=== PATIENT | female | born 1990 | race Asian ===

== ENCOUNTER 2020-04-21 16:39 | Emergency (ER) | payer OTHER, SELFPAY ==
[2020-04-20 13:32] VITALS: BMI 35.8
[2020-04-21] VITALS (8 sets, daily range): BP systolic 107–141; BP diastolic 65–87; PULSE 68–99; RESP 16–25; TEMP 37; O2SAT 96–99; BMI 35.9
--- NOTE | 2020-04-21 16:46 | NURSING ---
NO OLD EKGS
--- NOTE | 2020-04-21 17:02 | EKG12_ITS ---
Test Reason : Blood Pressure : / mmHG Vent. Rate : 074 BPM Atrial Rate : 074 BPM P-R Int : 144 ms QRS Dur : 082 ms QT Int : 406 ms P-R-T Axes : 041 014 016 degrees QTc Int : 450 ms Normal sinus rhythm Normal ECG Confirmed by TIO SAWYER, BOY ([id number]), newspaper copy editor LULA LINDSAY ([id number]) on 04/26/2020 11:07:28 AM Referred By: DIONTE Confirmed By:BOY KINSEY MD
--- NOTE | 2020-04-21 17:06 | ED.VISSUMM ---
- ER Visit Summary Date of Service: 04/21/20 Chief Complaint: Chest pain History of Present Illness: The patient is a 29 F who presents with chest pain that occurred 2 days ago. Patient states she has had similar pains in the past that come and go. Patient describes as a tingling in her midsternal area. Patient states the pain has subsided. Patient states she was laying down when it began. Patient states nothing makes it better or worse. Patient admits to some nausea but denies any vomiting. Patient denies any shortness of breath or diaphoresis. Patient does admit to a slight cough. Patient also states she had some lightheadedness a couple days ago. Patient denies any fevers. Patient denies any palpitations. Patient states she does have a history of gastroesophageal reflux. Physical Examination: Vital signs are stable. Patient is afebrile. Patient is in no acute distress. Oral mucosa is pink and moist. Neck is supple. Trachea is midline. There is no JVD noted. Heart was regular rate and rhythm. Lungs are clear and equal bilaterally. Abdomen is soft. Bowel sounds are normal. There is no tenderness. There is no rebound or guarding noted. Skin is warm dry. Cranial nerves II through XII are intact. There are no focal motor or sensory deficits noted. Extremities are intact. There is no calf tenderness or edema. Test Results: EKG showed normal sinus rhythm with a rate of 74. EKG from the patient's primary care physician's office was reviewed. There is concern for pericarditis on that EKG however on the EKG that was repeated here there are no changes consistent with pericarditis. Chest x-ray was obtained. There is no acute cardiopulmonary process. CBC was normal. Basic metabolic profile was essentially within normal limits. PT with INR and PTT were normal. Troponin was normal. Urinalysis shows leukocyte esterase of 100. Ketones were 5. There is 0-5 white blood cells and 0-5 squamous epithelial cells. CRP and sed rate were slightly elevated at 18.5 and 29 respectively. Emergency Department Course and Treatment: Patient is feeling better on reevaluation. Findings were discussed with the patient. Patient has a HEART score of 3. Patient was instructed to follow-up with her primary care physician in 5 to 7 days. Patient was advised she has low risk for acute cardiac event. Patient understood and was agreeable with the plan. All questions were answered. Disposition: Discharge home Impression: Chest pain of uncertain etiology This note was generated with [employer] dictation software. It may contain incorrect words, spelling, and punctuation that were not noted in review of the chart prior to signing ED Disposition - Plan for ED Patient: Disposition: Home or Assisted Living Diagnosis: Chest pain of uncertain etiology Instructions: ED Chest Pain Atypical Unkn Cause Referrals: Malorie More MD [Primary Care Provider] - 5-7 Days
[2020-04-21] MEDS: Aspirin 81 MG TAB.CHEW 324 MG PO (17:15)
[2020-04-21 17:17] LABS: Absolute Lymphocyte Count 3.69 X10^3/uL (0.83-4.51); Absolute Neutrophil Count 4.1 X10^3/uL (2.0-7.7); Basophil# 0.03 X10^3/uL; Basophil% 0.4 % (0-1); Eosinophils% 1.2 % (0-5); Hematocrit 42.5 % (37-47); Hemoglobin 13.8 g/dL (12.0-15.0); Lymphocyte # 3.69 X10^3/ul (4.0); Lymphocyte % 44.7 % (19-41); Mean Corp Hgb Conc 32.5 g/dL (32-36); Mean Corpuscular Hgb 27.7 pg (27.0-32.0); Mean Corpuscular Volume 85.3 fL (81-99); Mean Platelet Vol. 9.7 fl (6.2-12.0); Monocyte# 0.31 X10^3/uL; Monocyte% 3.8 % (0-10); NRBC Flagged by Analyzer 0 % (0-5); Neutrophil # 4.11 X10^3/uL (2.7-7.7); Neutrophil % 49.7 % (47-70); Platelet Count 350 K/mm3 (150-450); RBC Distribution Width CV 13.5 % (11.6-14.6); Red Blood Count 4.98 M/mm3 (4.2-5.4); White Blood Count 8.3 K/mm3 (4.4-11.0)
--- NOTE | 2020-04-21 17:30 | RAD_ITS ---
STUDY: X-RAY CHEST REASON FOR EXAM: Female, 29 years old. PT WAS HAVING CHEST PAIN 2 DAYS AGO AND WENT TO PCP, SENT TO [facility] FOR ABNORMAL EKG. TECHNIQUE: 1 view COMPARISON: None. FINDINGS: Shallow inspiration without infiltrates, consolidation or pleural effusion. There is no demonstrated pleural abnormality. Normal size heart. Normal mediastinum and jesusita. Normal visualized pulmonary arteries. Normal visualized aortic arch and descending thoracic aorta. Normal visualized thoracic spine. Normal visualized ribs, clavicles, and shoulders. There is no demonstrated abnormality of the visualized soft tissue structures of the upper abdomen. RAD/Chest 1 View (Portable) IMPRESSION: Normal x-ray examination of the chest in shallow inspiration Electronically Signed: Gillian Winters MD at 17:43 EDT , Service support ,
[2020-04-21 17:33] LABS: Prothrombin Time (Protime)PT. 12.3 SECONDS (11.7-14.9)
[2020-04-21 17:34] LABS: Partial Thromboplast Time 28.7 Seconds (24.1-36.2)
[2020-04-21 17:52] LABS: Anion Gap 6 (5-15); BUN 13 mg/dL (7-18); BUN/Creat Ratio 18.3 RATIO (10-20); Calcium,Total 8.7 mg/dL (8.5-10.1); Chloride 101 mmol/L (98-107); Creatinine, Serum 0.71 mg/dL (0.55-1.02); EST Glomerular Filtration Rate 104 mL/min (>60); Erythrocyte Sedimentation Rate 29 mm/hr (0-20); Est Glom Filt Rate - Afr Amer 126 mL/min (>60); Estimated Creatinine Clearance 102.78 ml/min; Glucose 172 mg/dL (74-106); Potassium 3.5 mmol/L (3.5-5.1); Sodium Level 136 mmol/L (136-145)
[2020-04-21 19:11] LABS: Red Blood Cells-Urine 0 SEEN /hpf (0-5)
[2020-04-21 19:22] LABS: Color, Urine Yellow (Yellow); Glucose, Dipstick Normal (Normal); Ketone-Dipstick 5 mg/dl (Negative); Leukocyte Esterase-Dipstick 100 /ul (Negative); Nitrite-Dipstick Negative (Negative); Occult Blood-Urine Negative /ul (Negative); Protein-Dipstick 15 mg/dl (Negative); Specific Gravity, Urine 1.025 (1.002-1.030); Urine Bilirubin Dipstick Negative (Negative); Urine Clarity Clear (Clear); Urine Urobilinogen 1 mg/dl (Normal)
[2020-04-21 20:01] LABS: Bacteria 1+ /hpf (None Seen); Mucous, Urine 3+ /hpf (<or=2+); Squamous Epithelial Cells - UA 5-10 SEEN /hpf (5-10); Transitional Epithelial - Ur 5-10 SEEN /hpf (0-5); White Blood Cells 5-10 SEEN /hpf (0-5)
== END 2020-04-21 20:34 | disposition home or self-care (01) ==
PROVIDERS: Emergency Provider Emergency Medicine; PCP Internal Medicine
DX: R07.9 Chest pain, unspecified (principal); F17.200 Nicotine dependence, unspecified, uncomplicated; E11.9 Type 2 diabetes mellitus without complications; Z79.84 Long term (current) use of oral hypoglycemic drugs
CPT/HCPCS: 71045; 80048; 81001; 84484; 85025; 85610; 85652; 85730; 86140; 93005; 99284; A4216

== ENCOUNTER → 2020-04-30 09:18 | Outpatient (CLI) | payer OTHER, SELFPAY ==
[2020-04-21 16:40] VITALS: BMI 35.9
--- NOTE | 2020-04-30 09:24 | US_ITS ---
STUDY: ABDOMINAL ULTRASOUND - RIGHT UPPER QUADRANT REASON FOR VISIT: Female, 29 years old RUQ PAIN, NAUSEA X 2 MONTHS TECHNIQUE: Ultrasound evaluation of the right upper quadrant was performed with real-time and static madison-scale imaging. TECHNICAL QUALITY: Limited. Examination limited due to obesity. COMPARISON: None. FINDINGS: Liver: The liver measures 16.1 cm. There is increased echogenicity consistent with fatty infiltration. The bile ducts are within normal limits. There is hepatic color flow. The direction of portal flow is hepatopetal. There is no demonstrated mass lesion. Gallbladder: Normal distended gallbladder. The gallbladder wall measures 2 mm. There is a negative sonographic Hannon''s sign. There is no pericholecystic fluid. There are no gallstones. Common Bile Duct (C.B.D.): The common bile duct measures 5 mm. Pancreas: Normal size of the head, body and tail of the pancreas. There is increased echogenicity of the pancreas. There is no demonstrated pancreatic mass or cyst. Right Kidney: Normal size of the right kidney. The right kidney measures 11.7 x 4.9 x 4.9 cm. Normal renal cortex. The right cortex measures 1.2 cm. There is no demonstrated renal mass or cyst. There is no right hydronephrosis. US/Gallbladder IMPRESSION: Diffuse fatty infiltration of liver, no discrete lesion Nonspecific echogenic pancreas Electronically Signed: Joesph Snow MD at 12:04 EDT , Service support ,
== END ==
PROVIDERS: PCP Internal Medicine; Referring Provider Nurse Practitioner; Visit Provider Nurse Practitioner
DX: R10.11 Right upper quadrant pain (principal)
CPT/HCPCS: 76705

== ENCOUNTER 2020-07-07 16:19 | Outpatient (RCR) | payer OTHER, SELFPAY ==
[2020-04-21 16:40] VITALS: BMI 35.9
== END 2020-07-07 23:59 ==
LOC: DC 16:19
PROVIDERS: PCP Internal Medicine; Visit Provider Nurse Practitioner
DX: Z71.3 Dietary counseling and surveillance (principal); E11.9 Type 2 diabetes mellitus without complications
CPT/HCPCS: 97802

== ENCOUNTER → 2021-01-26 12:01 | Outpatient (CLI) | payer OTHER, SELFPAY ==
[2020-04-21 16:40] VITALS: BMI 35.9
[2021-01-26 15:50] LABS: ALB/GLOB Ratio 0.7 RATIO (0.9-2.4); AST(SGOT) 35 U/L (15-37); Alanine Aminotransfer ALT/SGPT 90 U/L (13-56); Albumin, Serum 3.6 g/dL (3.2-5.0); Alkaline Phosphatase 87 U/L (45-117); Anion Gap 7 (5-15); BUN 11 mg/dL (7-18); Calcium,Total 9.2 mg/dL (8.5-10.1); Chloride 101 mmol/L (98-107); Creatinine, Serum 0.69 mg/dL (0.55-1.02); EST Glomerular Filtration Rate 107 mL/min (>60); Est Glom Filt Rate - Afr Amer 130 mL/min (>60); Globulin 4.9 g/dL (2.2-4.2); Glucose 248 mg/dL (74-106); Potassium 3.9 mmol/L (3.5-5.1); Protein, Total 8.5 g/dL (6.4-8.2); Sodium Level 134 mmol/L (136-145)
== END ==
PROVIDERS: PCP Internal Medicine
DX: E28.2 Polycystic ovarian syndrome (principal); R79.89 Other specified abnormal findings of blood chemistry
CPT/HCPCS: 36415; 80053; 84403

== ENCOUNTER → 2021-04-19 16:20 | Outpatient (CLI) | payer OTHER, SELFPAY ==
[2020-04-21 16:40] VITALS: BMI 35.9
[2021-04-19 18:04] LABS: Amylase 33 U/L (25-115); Ferritin 249 ng/mL (8-252); Iron 44 ug/dL (50-170); Iron Binding Capacity,Total 315 ug/dL (250-450); Lipase 125 U/L (73-393)
[2021-04-21 05:09] LABS: HEPATITIS B SURFACE AG Negative (Negative); Hepatitis A AB, Total Negative (Negative); Hepatitis A IgM Antibody Negative (Negative); Hepatitis B Core AB IgM Negative (Negative); Hepatitis B Core Ab Total Negative (Negative); Hepatitis C Ab <0.1 s/co ratio (0.0-0.9)
[2021-04-21 10:59] LABS: Ceruloplasmin 23.9 mg/dL (19.0-39.0); Hep B Surface Antibodies Non Reactive (.)
== END ==
PROVIDERS: PCP Nurse Practitioner; Referring Provider Nurse Practitioner; Visit Provider Nurse Practitioner
DX: R19.7 Diarrhea, unspecified (principal); E78.1 Pure hyperglyceridemia; R74.8 Abnormal levels of other serum enzymes; Z71.84 Encounter for health counseling related to travel
CPT/HCPCS: 36415; 82150; 82390; 82728; 83540; 83550; 83690; 86704; 86705; 86706; 86708; 86709; 86803; 87340

== ENCOUNTER → 2021-05-27 08:49 | Outpatient (CLI) | payer OTHER, SELFPAY ==
--- NOTE | 2021-05-27 08:53 | VDLE_ITS ---
Reason For Study: PAIN RIGHT LEFT GSV is normal. CFV is compressible, spontaneous, phasic, CFV is compressible, spontaneous, phasic, competent, and demonstrates normal competent and demonstrates normal augmentation. augmentation. FV is compressible, spontaneous, phasic, competent and demonstrates normal augmentation. POP V is compressible, spontaneous, phasic, competent and demonstrates normal augmentation. T/P Trunk is compressible. PTV is compressible. RT PerV is compressible. Procedure This is a venous duplex using B-mode, color flow and spectral Doppler. Exam performed in department. A preliminary report was called and/or faxed to DR ARIAS. VL/Venous Duplex US, Unilateral Interpretation Summary There is no evidence of right lower extremity deep vein thrombosis. Right great saphenous vein appears patent and compressible segmentally. Normal flow patterns left common f emoral vein Ordering Physician: Chelly Arias Referring Physician: CHELLY ARIAS Performed By: Bernarda Lawton, RDCS, RVT
== END ==
PROVIDERS: PCP Internal Medicine; Visit Provider Internal Medicine
DX: M79.604 Pain in right leg (principal)
CPT/HCPCS: 93971

== ENCOUNTER → 2021-06-15 10:26 | Outpatient (CLI) | payer OTHER, SELFPAY ==
[2021-06-15 12:25] LABS: Vitamin D,25 Hydroxy 13.8 ng/mL
[2021-06-15 12:35] LABS: ALB/GLOB Ratio 0.6 RATIO (0.9-2.4); AST(SGOT) 97 U/L (15-37); Alanine Aminotransfer ALT/SGPT 223 U/L (13-56); Albumin, Serum 3.2 g/dL (3.2-5.0); Alkaline Phosphatase 90 U/L (45-117); Anion Gap 3 (5-15); BUN 15 mg/dL (7-18); BUN/Creat Ratio 23.1 RATIO (10-20); Calcium,Total 8.8 mg/dL (8.5-10.1); Chloride 103 mmol/L (98-107); Cholesterol 255 mg/dL (200); Creatinine, Serum 0.65 mg/dL (0.55-1.02); EST Glomerular Filtration Rate 115 mL/min (>60); Est Glom Filt Rate - Afr Amer 139 mL/min (>60); Glucose 206 mg/dL (74-106); High Density Lipoprotein 44 mg/dL; Potassium 3.9 mmol/L (3.5-5.1); Protein, Total 8.2 g/dL (6.4-8.2); Sodium Level 134 mmol/L (136-145); Thyroid Stim Hormone (TSH) 0.78 uIU/mL (0.358-3.74); Triglycerides 193 mg/dL; Very Low Density Lipoprotein 39 mg/dL (5-40)
[2021-06-15 15:55] LABS: Internal QC Validated? YES +Cl - CLEAR BKGD; Pregnancy, Urine Negative Negative
[2021-06-15 16:03] LABS: Microalbumin,Random Urine 19.6 mg/L (NO RANGE EST.); Microalbumin:Creatinine Ratio 11.8 mg/g CRE (<30 mg/g CRE)
== END ==
PROVIDERS: PCP Internal Medicine; Referring Provider Nurse Practitioner Family; Visit Provider Nurse Practitioner Family
DX: E78.1 Pure hyperglyceridemia (principal); E78.5 Hyperlipidemia, unspecified; E11.9 Type 2 diabetes mellitus without complications
CPT/HCPCS: 36415; 80053; 80061; 81025; 82043; 82306; 82570; 84443

== ENCOUNTER 2021-11-11 14:38 | Outpatient (CLI) | payer OTHER, SELFPAY ==
[2021-11-11 15:27] LABS: Hemoglobin A1c 6.8 % (3.8-5.6)
[2021-11-11 16:02] LABS: Progesterone Level 0.26 ng/mL (See Comment); T3 Total - Triiodothyronine 1.33 ng/mL (0.6-1.81); Vitamin D,25 Hydroxy 31.5 ng/mL
[2021-11-11 16:08] LABS: Estradiol 51.2 pg/mL; Follicle Stimulating Hormone 5.4 mIU/mL; Free T3 2.7 pg/mL (2.18-3.98); Prolactin 3.8 ng/mL; T4 Free Direct 1.06 ng/dL (0.76-1.46); Thyroid Stim Hormone (TSH) 0.85 uIU/mL (0.358-3.74)
[2021-11-15 16:07] LABS: 17-Hydroxyprogesterone 31 ng/dL (.)
[2021-11-16 09:44] LABS: Luteinizing Hormone 7.2 mIU/mL
[2021-11-17 11:01] LABS: Anti-Mullerian Hormone,Serum 1.36 ng/mL (.); Sex Hormone-binding Globulin 14.5 nmol/L (24.6-122.0)
== END 2021-11-11 23:59 | disposition home or self-care (01) ==
LOC: WOBLAB 14:40
PROVIDERS: PCP Internal Medicine; Visit Provider Obstetrics & Gynecology
DX: N91.2 Amenorrhea, unspecified (principal)
CPT/HCPCS: 36415; 82306; 82533; 82627; 82670; 83001; 83002; 83036; 83498; 83516; 84144; 84146; 84270; 84403; 84439; 84443; 84480; 84481; 82626

== ENCOUNTER → 2022-05-07 | Outpatient (CLI) | payer OTHER, SELFPAY ==
[2022-05-08 08:37] LABS: Progesterone Level 6.21 ng/mL (See Comment)
== END | disposition home or self-care (01) ==
LOC: LAB 15:38
PROVIDERS: PCP Internal Medicine; Visit Provider Obstetrics & Gynecology
DX: E28.2 Polycystic ovarian syndrome (principal); Z51.81 Encounter for therapeutic drug level monitoring
CPT/HCPCS: 84144

== ENCOUNTER → 2022-05-24 | Outpatient (CLI) | payer OTHER, SELFPAY ==
[2022-05-24 15:35] LABS: hCG Titer Quant., Serum 784 mIU/mL (1-3)
== END | disposition home or self-care (01) ==
PROVIDERS: PCP Internal Medicine; Referring Provider Nurse Practitioner Family; Visit Provider Nurse Practitioner Family
DX: Z34.90 Encounter for supervision of normal pregnancy, unspecified, unspecified trimester (principal)
CPT/HCPCS: 36415; 84702

== ENCOUNTER → 2022-05-26 | Outpatient (CLI) | payer OTHER, SELFPAY ==
[2022-05-26 13:01] LABS: hCG Titer Quant., Serum 1465 mIU/mL (1-3)
== END | disposition home or self-care (01) ==
LOC: WOBLAB 10:05
PROVIDERS: PCP Internal Medicine; Visit Provider Student in an Organized Health Care Education/Training Program
DX: N91.2 Amenorrhea, unspecified (principal)
CPT/HCPCS: 36415; 84702

== ENCOUNTER → 2023-06-13 | Outpatient (CLI) | payer OTHER, SELFPAY ==
[2023-06-13 16:26] LABS: Vitamin B12 286 pg/mL (211-911); Vitamin D,25 Hydroxy 23.4 ng/mL
[2023-06-13 16:40] LABS: ALB/GLOB Ratio 0.7 RATIO (0.9-2.4); AST(SGOT) 15 U/L (15-37); Alanine Aminotransfer ALT/SGPT 25 U/L (13-56); Albumin, Serum 3.4 g/dL (3.2-5.0); Alkaline Phosphatase 81 U/L (45-117); Anion Gap 3 (5-15); BUN 12 mg/dL (7-18); BUN/Creat Ratio 15.9 RATIO (10-20); Calcium,Total 8.8 mg/dL (8.5-10.1); Chloride 106 mmol/L (98-107); Cholesterol 219 mg/dL (200); Creatinine, Serum 0.76 mg/dL (0.55-1.02); EST Glomerular Filtration Rate 95 mL/min (>60); Est Glom Filt Rate - Afr Amer 115 mL/min (>60); Globulin 4.7 g/dL (2.2-4.2); Glucose 92 mg/dL (74-106); High Density Lipoprotein 43 mg/dL; Potassium 3.9 mmol/L (3.5-5.1); Protein, Total 8.1 g/dL (6.4-8.2); Sodium Level 137 mmol/L (136-145); Triglycerides 146 mg/dL; Very Low Density Lipoprotein 29 mg/dL (5-40)
== END | disposition home or self-care (01) ==
LOC: LAB 15:13
PROVIDERS: PCP Internal Medicine; Referring Provider Nurse Practitioner Family; Visit Provider Nurse Practitioner Family
DX: E11.9 Type 2 diabetes mellitus without complications (principal)
CPT/HCPCS: 36415; 80053; 80061; 82306; 82607; 84443

== ENCOUNTER → 2024-02-13 | Outpatient (CLI) | payer OTHER, SELFPAY ==
[2024-02-13 16:49] LABS: ALB/GLOB Ratio 0.7 RATIO (0.9-2.4); AST(SGOT) 23 U/L (15-37); Alanine Aminotransfer ALT/SGPT 43 U/L (13-56); Albumin, Serum 3.5 g/dL (3.2-5.0); Alkaline Phosphatase 66 U/L (45-117); Anion Gap 4 (5-15); BUN 13 mg/dL (7-18); BUN/Creat Ratio 21.4 RATIO (10-20); Chloride 104 mmol/L (98-107); Creatinine, Serum 0.61 mg/dL (0.55-1.02); EST Glomerular Filtration Rate 122 mL/min (>60); Est Glom Filt Rate - Afr Amer 147 mL/min (>60); Globulin 4.7 g/dL (2.2-4.2); Glucose 63 mg/dL (74-106); Potassium 3.5 mmol/L (3.5-5.1); Protein, Total 8.2 g/dL (6.4-8.2); Sodium Level 134 mmol/L (136-145)
== END | disposition home or self-care (01) ==
LOC: LAB 14:59
PROVIDERS: PCP Internal Medicine; Referring Provider Nurse Practitioner Family; Visit Provider Nurse Practitioner Family
DX: K76.0 Fatty (change of) liver, not elsewhere classified (principal)
CPT/HCPCS: 36415; 80053